=== PATIENT | female | born 1995 | race African-American/Black ===

== ENCOUNTER 2016-07-08 20:54 | Observation (INO) | payer MEDICAID ==
[~2016-07-08] VITALS: Ht 149.9 cm; Wt 48.1 kg
== END 2016-07-08 22:10 | disposition home or self-care (01) | DRG 566 ==
LOC: LDRP 20:54
PROVIDERS: ADMIT Specialist; ATTEND Specialist
DX: O26.893 Other specified pregnancy related conditions, third trimester (principal); R10.2 Pelvic and perineal pain; O62.9 Abnormality of forces of labor, unspecified; Z3A.38 38 weeks gestation of pregnancy
CPT/HCPCS: G0378

== ENCOUNTER 2016-07-11 06:17 | Observation (INO) | payer MEDICAID | END 2016-07-11 07:10 | disposition home or self-care (01) | DRG 566 | LOC: LDRP 06:17 | PROVIDERS: ADMIT Obstetrics & Gynecology; ATTEND Obstetrics & Gynecology | DX: O26.853 Spotting complicating pregnancy, third trimester (principal); Z3A.39 39 weeks gestation of pregnancy | CPT/HCPCS: 59025; 81002; G0378; G0434 ==

== ENCOUNTER 2016-07-12 18:52 | Observation (INO) | payer MEDICAID ==
[2016-07-12] MEDS ORDERED: ACETAMINOPHEN/CODEINE#3 (300/30mg) TAB ONE (20:46)
[2016-07-12] MEDS ORDERED: ACETAMINOPHEN/CODEINE#3 (300/30mg) TAB PO ONE (20:51)
[2016-07-12 21:34] LABS: Urine Bilirubin Negative (Negative); Urine Color Yellow (Yellow); Urine Glucose Normal (Normal); Urine Ketone Negative (Negative); Urine Nitrite Negative (Negative); Urine RBC 19 /hpf (0 - 4); Urine Squamous Epithelial Cell FEW /hpf (<5); Urine Urobilinogen Normal (Negative); Urine WBC Clumps PRESENT /hpf (None Seen); Urine pH 7.5 (5.0-8.0)
[2016-07-12 21:36] LABS: Urine Blood 3+ /uL (Negative)
== END 2016-07-12 22:05 | disposition home or self-care (01) | DRG 566 ==
LOC: LDRP 18:52
PROVIDERS: ADMIT Specialist; ATTEND Specialist
DX: O26.893 Other specified pregnancy related conditions, third trimester (principal); Z3A.39 39 weeks gestation of pregnancy
CPT/HCPCS: 59025; 81001; 81002; G0378

== ENCOUNTER 2016-07-13 02:10 | Inpatient (IN) | payer MEDICAID ==
[~2016-07-13] VITALS: Ht 30.5 cm; Wt 0.5 kg
[2016-07-13] MEDS ORDERED: LACT. RINGERS/OXYTOCIN 20UNITS 1,000 ML IV SCH (03:39)
[2016-07-13] MEDS ORDERED: DERMOPLAST 60ML BOTTLE TOP PRN (03:45)
[2016-07-13] MEDS ORDERED: LIDOCAINE 1% HCL (LOCAL ANESTH.) INJ 20ML MDV IJ ONE (03:45)
[2016-07-13] MEDS ORDERED: PHISODERM TOP SOLN 240ML BTL TOP PRN (03:45)
[2016-07-13] MEDS ORDERED: PROMETHAZINE HCL 25 MG/ML 1ML IV PRN ×2 (03:45→04:45)
[2016-07-13] MEDS ORDERED: NALBUPHINE HCL 10 MG/1ml INJECTION IV PRN (03:45)
[2016-07-13] MEDS ORDERED: WITCH HAZEL-GLYCERIN PAD TOP PRN (03:45)
[2016-07-13 04:20] LABS: Basophils # (auto) 0 uL; Basophils % (auto) 0.2 % (0.0-2.0); Eosinophils # (auto) 0 uL; Eosinophils % (auto) 0.4 % (0.0-7.0); Hematocrit 35.2 % (36.0-46.0); Hemoglobin 11.1 g/dL (12.2-16.2); Lymphocytes # (auto) 2.5 uL; Lymphocytes % (auto) 20.5 % (10.0-50.0); Mean Corpuscular Hemoglobin 29.6 pg (28.0-32.0); Mean Corpuscular Hgb Conc. 31.6 g/dL (32.0-36.0); Mean Corpuscular Volume 93.9 fL (80.0-100.0); Mean Platelet Volume 8.2 fL (7.4-10.4); Monocytes # (auto) 1.5 uL; Monocytes % (auto) 12.2 % (0.0-12.0); Neutrophils # (auto) 8.1 uL; Neutrophils % (auto) 66.7 % (37.0-80.0); Platelet Count (auto) 265 10^3/uL (140-450); White Blood Cell 12.1 10^3/uL (4.4-10.8)
[2016-07-13 04:58] LABS: Albumin 2.6 g/dL (3.4-5.0); BUN/Creatinine Ratio 4.8; Calcium 8.5 mg/dL (8.5-10.1)
[2016-07-13 05:01] LABS: Bilirubin, Total 0.3 mg/dL (0.2-1.0); Total Protein 6.8 g/dL (6.4-8.2)
[2016-07-13 05:02] LABS: Potassium 2.6 mmol/L (3.5-5.1)
[2016-07-13 05:08] LABS: Urine Bilirubin Negative (Negative); Urine Ca Oxalate Crystal FEW (None Seen); Urine Color Yellow (Yellow); Urine Glucose Normal (Normal); Urine Hyaline Cast MOD /lpf (0 - 2); Urine Ketone Negative (Negative); Urine Nitrite Negative (Negative); Urine RBC 137 /hpf (0 - 4); Urine Squamous Epithelial Cell FEW /hpf (<5); Urine Urobilinogen Normal (Negative); Urine pH 7.5 (5.0-8.0)
[2016-07-13 05:09] LABS: INR 0.95 (0.9-1.15); Partial Thromboplastin Time 27.7 sec (22.64-33.71); Prothrombin Time 9.8 sec (9.37-12.3)
[2016-07-13 05:12] LABS: Urine Blood 2+ /uL (Negative)
[2016-07-13] MEDS ORDERED: POTASSIUM CHL 20 Meq TABLET PO ONE (06:15)
[2016-07-13] MEDS ORDERED: POTASSIUM CHL 20MEQ/100ML 100 ML IV ONE (06:15)
[2016-07-13] MEDS: LACTATED RINGER'S 1,000 ML IV SCH ×3 (07:00→19:39)
[2016-07-13] MEDS ORDERED: ePHEDrine SULFATE 50 MG/ML AMP IV ONE ×2 (07:15→13:30)
[2016-07-13] MEDS ORDERED: fentaNYL CITRATE 100 MCG/2 ML VL IV ONE (07:15)
[2016-07-13] MEDS ORDERED: fentaNYL W ROPIVACAINE 150 ML EPI SCH (07:15)
[2016-07-13] MEDS ORDERED: LIDOCAINE HCL 2 %PF INJ 10ML AMP IJ ONE (07:15)
[2016-07-13] MEDS ORDERED: NALOXONE HCL 0.4 MG/ML VIAL IV ONE (13:30)
[2016-07-13] MEDS ORDERED: hydrALAZINE HCL 20 MG/ML VL IV ONE (14:45)
[2016-07-13 15:35] LABS: Basophils # (auto) 0 uL; Basophils % (auto) 0.1 % (0.0-2.0); DEFINITIVE VIEW TRANSMISSION; Eosinophils # (auto) 0 uL; Hematocrit 34.8 % (36.0-46.0); Hemoglobin 11.3 g/dL (12.2-16.2); Lymphocytes # (auto) 1.2 uL; Lymphocytes % (auto) 7.4 % (10.0-50.0); Mean Corpuscular Hemoglobin 29.8 pg (28.0-32.0); Mean Corpuscular Hgb Conc. 32.3 g/dL (32.0-36.0); Mean Corpuscular Volume 92.1 fL (80.0-100.0); Monocytes # (auto) 1.6 uL; Monocytes % (auto) 10.2 % (0.0-12.0); Neutrophils % (auto) 82.3 % (37.0-80.0); Platelet Count (auto) 272 10^3/uL (140-450); Red Cell Distribution Width 14.3 % (11.6-16.0); White Blood Cell 15.8 10^3/uL (4.4-10.8)
[2016-07-13 16:26] LABS: Albumin 2.7 g/dL (3.4-5.0); BUN/Creatinine Ratio 7.3; Bilirubin, Total 0.4 mg/dL (0.2-1.0); Calcium 8.5 mg/dL (8.5-10.1); Potassium 3.5 mmol/L (3.5-5.1); Total Protein 6.8 g/dL (6.4-8.2); Uric Acid 3.9 mg/dL (2.6-6.0)
[2016-07-13] MEDS: DOCUSATE CALCIUM 240 MG CAP PO SCH (18:55)
[2016-07-13] MEDS ORDERED: ACETAMINOPHEN 325 MG TAB PO PRN (19:00)
[2016-07-13] MEDS ORDERED: LABETALOL HCL 200 MG TAB ONE (20:32)
[2016-07-13 21:02] LABS: Basophils # (auto) 0 uL; Basophils % (auto) 0.1 % (0.0-2.0); DEFINITIVE VIEW TRANSMISSION; Eosinophils # (auto) 0 uL; Hematocrit 31.8 % (36.0-46.0); Hemoglobin 10.1 g/dL (12.2-16.2); Lymphocytes # (auto) 0.7 uL; Lymphocytes % (auto) 3.4 % (10.0-50.0); Mean Corpuscular Hgb Conc. 31.9 g/dL (32.0-36.0); Mean Platelet Volume 8.1 fL (7.4-10.4); Neutrophils # (auto) 18.9 uL; Neutrophils % (auto) 87.5 % (37.0-80.0); Platelet Count (auto) 262 10^3/uL (140-450); Red Cell Distribution Width 14.3 % (11.6-16.0); SUSPECT VIEW TRANSMISSION; White Blood Cell 21.6 10^3/uL (4.4-10.8)
[2016-07-13 21:45] LABS: Platelet Estimate Adequate
[2016-07-13 21:46] LABS: Anisocytosis Slight
[2016-07-13] MEDS: ceFAZolin 1GM/50ML D5W 50 ML IV SCH (21:57)
[2016-07-13] MEDS: IBUPROFEN 600 MG TAB PO PRN (21:58)
[2016-07-13] MEDS: LABETALOL HCL 200 MG TAB PO SCH (22:00)
[2016-07-14] VITALS (7 sets, daily range): BP systolic 94–131; BP diastolic 55–80
[2016-07-14] MEDS: ceFAZolin 1GM/50ML D5W 50 ML IV SCH ×2 (05:40→21:56)
[2016-07-14] MEDS: IBUPROFEN 600 MG TAB PO PRN (07:30)
[2016-07-14] MEDS: LABETALOL HCL 200 MG TAB PO SCH ×2 (09:56→21:59)
[2016-07-14] MEDS: DOCUSATE CALCIUM 240 MG CAP PO SCH (09:58)
[2016-07-14] MEDS ORDERED: ceFAZolin 1GM/50ML D5W 50 ML IV SCH (14:00)
[2016-07-15 04:00] VITALS: BP 119/78
[2016-07-15] MEDS: ceFAZolin 1GM/50ML D5W 50 ML IV SCH (06:00)
[2016-07-15 08:13] VITALS: BP 116/77
== END 2016-07-15 10:55 | disposition home or self-care (01) | DRG 560 ==
LOC: OBSVTOIN 02:10 → LDRP 02:10
PROVIDERS: ADMIT Specialist; ATTEND Specialist
PROC: 10E0XZZ Delivery of Products of Conception, External Approach (ICD-10-PCS; principal; 2016-07-13)
PROC: 0W8NXZZ Division of Female Perineum, External Approach (ICD-10-PCS; 2016-07-13)
PROC: 00HU33Z Insertion of Infusion Device into Spinal Canal, Percutaneous Approach (ICD-10-PCS; 2016-07-13)
PROC: 3E0R3CZ (ICD-10-PCS; 2016-07-13)
DX: O13.4 Gestational [pregnancy-induced] hypertension without significant proteinuria, complicating childbirth (principal); O77.0 Labor and delivery complicated by meconium in amniotic fluid; Z37.0 Single live birth; Z3A.39 39 weeks gestation of pregnancy
CPT/HCPCS: 36415; 51702; 59025; 59409; 62282; 80053; 81001; 84550; 85025; 85384; 85610; 85730; 86850; 86900; 86901; 87086; 96365; 96366; 96375; G0434; J0690; J2590; J3010; J3480

== ENCOUNTER 2018-02-12 11:40 | Observation (INO) | payer MEDICAID ==
[~2018-02-12] VITALS: Ht 30.5 cm; Wt 0.5 kg
[~2018-02-12 11:40] MED LIST: PREN-96 PO
[2018-02-12] MEDS ORDERED: BETAMETHASONE ACET (6MG/ML) 5ML VIAL IM ONE (12:30)
[2018-02-13] MEDS ORDERED: FERR-7 PO (13:45)
== END 2018-02-12 13:20 | disposition home or self-care (01) | DRG 566 ==
LOC: LDRP 11:40
PROVIDERS: ADMIT Specialist; ATTEND Specialist
DX: O36.5930 Maternal care for other known or suspected poor fetal growth, third trimester, not applicable or unspecified (principal); Z3A.35 35 weeks gestation of pregnancy
CPT/HCPCS: 59025; 81002; 96372; G0378; J0702

== ENCOUNTER 2018-02-13 13:00 | Observation (INO) | payer MEDICAID ==
[~2018-02-13] VITALS: Ht 149.9 cm; Wt 56.2 kg
[2018-02-13] MEDS ORDERED: BETAMETHASONE ACET (6MG/ML) 5ML VIAL IM ONE (13:10)
[2018-02-13] MEDS ORDERED: FERR-7 PO (13:45)
== END 2018-02-13 13:35 | disposition home or self-care (01) | DRG 566 ==
LOC: LDRP 13:00
PROVIDERS: ADMIT Obstetrics & Gynecology; ATTEND Obstetrics & Gynecology
DX: O36.5930 Maternal care for other known or suspected poor fetal growth, third trimester, not applicable or unspecified (principal); O99.89 Other specified diseases and conditions complicating pregnancy, childbirth and the puerperium; M54.9 Dorsalgia, unspecified; Z3A.36 36 weeks gestation of pregnancy
CPT/HCPCS: 59025; 81002; 96372; G0378

== ENCOUNTER 2018-02-16 15:30 | Observation (INO) | payer MEDICAID ==
[~2018-02-16 15:30] MED LIST changes: +FERR-7 PO
== END 2018-02-16 16:30 | disposition home or self-care (01) | DRG 566 ==
LOC: LDRP 15:30
PROVIDERS: ADMIT Specialist; ATTEND Specialist
DX: O36.5930 Maternal care for other known or suspected poor fetal growth, third trimester, not applicable or unspecified (principal); O26.893 Other specified pregnancy related conditions, third trimester; R10.30 Lower abdominal pain, unspecified; Z3A.36 36 weeks gestation of pregnancy
CPT/HCPCS: 59025; 81002; G0378; 76818

== ENCOUNTER 2018-02-23 14:06 | Observation (INO) | payer MEDICAID | END 2018-02-23 16:31 | disposition home or self-care (01) | DRG 566 | LOC: LDRP 14:06 | PROVIDERS: ADMIT Obstetrics & Gynecology; ATTEND Obstetrics & Gynecology | DX: O36.5930 Maternal care for other known or suspected poor fetal growth, third trimester, not applicable or unspecified (principal); O26.893 Other specified pregnancy related conditions, third trimester; R10.30 Lower abdominal pain, unspecified; Z3A.37 37 weeks gestation of pregnancy | CPT/HCPCS: 59025; 76818; 81002; G0378 ==

== ENCOUNTER 2018-02-28 14:05 | Observation (INO) | payer MEDICAID | END 2018-02-28 15:40 | disposition home or self-care (01) | DRG 566 | LOC: LDRP 14:05 | PROVIDERS: ADMIT Obstetrics & Gynecology; ATTEND Obstetrics & Gynecology | DX: O36.5930 Maternal care for other known or suspected poor fetal growth, third trimester, not applicable or unspecified (principal); O26.893 Other specified pregnancy related conditions, third trimester; R10.30 Lower abdominal pain, unspecified; Z3A.38 38 weeks gestation of pregnancy | CPT/HCPCS: 59025; 76818; 81002; G0378 ==

== ENCOUNTER 2018-03-06 10:00 | Inpatient (IN) | payer MEDICAID ==
[~2018-03-06] VITALS: Ht 30.5 cm; Wt 0.5 kg
[2018-03-06] MEDS ORDERED: PENICILLIN G POT 5MIL/D5 50ML 50 ML IV ONE (10:30)
[2018-03-06] MEDS ORDERED: LIDOCAINE 2% (LOCAL ANESTH.) PF 5ml SDV ID ONE (10:30)
[2018-03-06] MEDS ORDERED: NALBUPHINE HCL 10 MG/1ml INJECTION IV PRN (10:30)
[2018-03-06] MEDS ORDERED: DERMOPLAST 60ML BOTTLE TOP PRN (10:30)
[2018-03-06] MEDS ORDERED: PHISODERM TOP SOLN 240ML BTL TOP PRN (10:30)
[2018-03-06] MEDS ORDERED: WITCH HAZEL-GLYCERIN PAD TOP PRN (10:30)
[2018-03-06] MEDS ORDERED: PROMETHAZINE HCL 25 MG/ML 1ML IV PRN (10:30)
[2018-03-06] MEDS: LACTATED RINGER'S 1,000 ML IV SCH ×2 (10:56→16:51)
[2018-03-06 11:16] LABS: Basophils # (auto) 0 uL; Basophils % (auto) 0.5 % (0.0-2.0); Eosinophils # (auto) 0 uL; Eosinophils % (auto) 0.8 % (0.0-7.0); Hematocrit 37.4 % (36.0-46.0); Lymphocytes # (auto) 1.8 uL; Lymphocytes % (auto) 27.8 % (10.0-50.0); Mean Corpuscular Hemoglobin 33.3 pg (28.0-32.0); Mean Corpuscular Hgb Conc. 34.8 g/dL (32.0-36.0); Mean Corpuscular Volume 95.8 fL (80.0-100.0); Monocytes # (auto) 0.6 uL; Monocytes % (auto) 9.2 % (0.0-12.0); Neutrophils # (auto) 3.9 uL; Neutrophils % (auto) 61.7 % (37.0-80.0); Nucleated Red Blood Cells % 0.1 %; Platelet Count (auto) 179 10^3/uL (140-450); Red Blood Cells 3.91 10^6/uL (4.0-5.20); Red Cell Distribution Width 15.2 % (11.8-14.3); White Blood Cell 6.3 10^3/uL (4.4-10.8)
[2018-03-06 11:20] LABS: Urine Bacteria NONE SEEN /hpf (None Seen); Urine Blood Negative /uL (Negative); Urine Specific Gravity 1.002 (1.001-1.035); Urine WBC 1 /hpf (0 - 5)
[2018-03-06 11:30] LABS: INR 0.92 (0.9-1.15); Partial Thromboplastin Time 26.9 sec (23.78-33.04); Prothrombin Time 9.9 sec (9.27-12.13)
[2018-03-06 11:35] LABS: Albumin 2.7 g/dL (3.4-5.0); BUN/Creatinine Ratio 13.8; Calcium 7.6 mg/dL (8.5-10.1); Potassium 3.5 mmol/L (3.5-5.1)
[2018-03-06 11:37] LABS: Bilirubin, Total 0.2 mg/dL (0.2-1.0); Total Protein 6.6 g/dL (6.4-8.2)
[2018-03-06] MEDS: PENICILLIN G POTASSIUM 2,500,000 UNITS in D5W 5% 50 ML IV SCH ×3 (14:53→23:12)
[2018-03-06 15:17] LABS: Alcohol, Urine < 3.0 mg/dL (0-5); Amphetamine Screen, Urine NEGATIVE (NEGATIVE); Barbiturate Scree,Urine NEGATIVE (NEGATIVE); Benzodiazephine Screen, Urine NEGATIVE (NEGATIVE); Cannabinoid Screen, Urine NEGATIVE (NEGATIVE); Cocaine Screen, Urine NEGATIVE (NEGATIVE); Opiate Scree,Urine NEGATIVE (NEGATIVE); Phencyclidine Screen, Urine NEGATIVE (NEGATIVE)
[2018-03-06] MEDS ORDERED: LIDOCAINE HCL 2 %PF INJ 10ML AMP IJ ONE (20:15)
[2018-03-06] MEDS ORDERED: ePHEDrine SULFATE 50 MG/ML AMP IV ONE ×2 (20:15→21:15)
[2018-03-06] MEDS ORDERED: fentaNYL CITRATE 100 MCG/2 ML VL IV ONE ×2 (20:15→21:15)
[2018-03-06] MEDS ORDERED: fentaNYL W ROPIVACAINE 150 ML EPI SCH ×2 (20:15→21:15)
[2018-03-06] MEDS ORDERED: NALOXONE HCL 0.4 MG/ML VIAL IV ONE ×2 (20:15→21:15)
[2018-03-06] MEDS ORDERED: LACT. RINGERS/OXYTOCIN 20UNITS 1,000 ML IV SCH (22:27)
[2018-03-06] MEDS ORDERED: METHYLERGONOVINE MALEATE 0.2 MG/ML AMP IM ONE (22:29)
[2018-03-06] MEDS ORDERED: LACT. RINGERS/OXYTOCIN 20UNITS 1,000 ML IV ONE (22:29)
[2018-03-06] MEDS ORDERED: METHYLERGONOVINE MALEATE 0.2 MG/ML AMP IM PRN (22:30)
[2018-03-06] MEDS ORDERED: diphenhdrAMINE HCL 50 MG/1 ML VL IV PRN (23:00)
[2018-03-07 03:00] VITALS: BP 99/42
[2018-03-07] MEDS: IBUPROFEN 600 MG TAB PO PRN ×4 (03:25→17:14)
[2018-03-07] MEDS ORDERED: INFLUENZA QUAD 2018-2019 0.5 ML SYRG IM ONE (04:00)
[2018-03-07] MEDS ORDERED: TETANUS-DIPTH-ACEL PERTUSSIS 0.5ML SYRG IM ONE (04:00)
[2018-03-07 05:10] LABS: RPR Non Reactive (Non Reactive)
[2018-03-07 06:45] VITALS: BP 96/55
[2018-03-07] MEDS: DOCUSATE CALCIUM 240 MG CAP PO SCH (09:33)
[2018-03-07 11:05] VITALS: BP 84/55
[2018-03-07 15:05] VITALS: BP 94/59
[2018-03-07 22:55] VITALS: BP 111/68
[2018-03-07] MEDS ORDERED: ACETAMINOPHEN 325 MG TAB PO PRN (23:00)
[2018-03-08 03:15] VITALS: BP 98/61
[2018-03-08 06:40] VITALS: BP 113/78
[2018-03-08] MEDS: DOCUSATE CALCIUM 240 MG CAP PO SCH (11:06)
[2018-03-08 11:25] VITALS: BP 117/82
== END 2018-03-08 11:45 | disposition home or self-care (01) | DRG 560 ==
LOC: LDRP 10:00
PROVIDERS: ADMIT Specialist; ATTEND Specialist
PROC: 10E0XZZ Delivery of Products of Conception, External Approach (ICD-10-PCS; principal; 2018-03-06)
PROC: 3E0R3BZ Introduction of Anesthetic Agent into Spinal Canal, Percutaneous Approach (ICD-10-PCS; 2018-03-06)
PROC: 00HU33Z Insertion of Infusion Device into Spinal Canal, Percutaneous Approach (ICD-10-PCS; 2018-03-06)
PROC: 10907ZC Drainage of Amniotic Fluid, Therapeutic from Products of Conception, Via Natural or Artificial Opening (ICD-10-PCS; 2018-03-06)
DX: O99.824 Streptococcus B carrier state complicating childbirth (principal); O36.5930 Maternal care for other known or suspected poor fetal growth, third trimester, not applicable or unspecified; Z37.0 Single live birth; Z3A.39 39 weeks gestation of pregnancy
CPT/HCPCS: 36415; 51702; 59025; 59409; 62282; 80053; 80307; 81001; 85025; 85610; 85730; 86592; 86850; 86900; 86901; 94762; 96365; 96366; A6257; J2001; J2540; J2590; J3010; J7060

== ENCOUNTER 2020-10-23 02:10 | Inpatient (IN) | payer MEDICAID ==
[~2020-10-23] VITALS: Ht 149.9 cm; Wt 67.6 kg
[2020-10-23] MEDS ORDERED: BUTORPHANOL TARTRATE 2 MG/1 ML VIAL IV PRN ×2 (03:00)
[2020-10-23] MEDS ORDERED: LACT. RINGERS/OXYTOCIN 20UNITS 500 ML IV ONE (03:00)
[2020-10-23] MEDS ORDERED: DERMOPLAST 60ML BOTTLE TOP PRN (03:00)
[2020-10-23] MEDS ORDERED: PHISODERM TOP SOLN 240ML BTL TOP PRN (03:00)
[2020-10-23] MEDS ORDERED: WITCH HAZEL-GLYCERIN PAD TOP PRN (03:00)
[2020-10-23] MEDS ORDERED: OXYTOCIN 10UNIT/ML 1ML VIAL IM ONE (03:00)
[2020-10-23] MEDS ORDERED: PROMETHAZINE HCL 25 MG/ML 1ML IV PRN (03:00)
[2020-10-23] MEDS ORDERED: TERBUTALINE SULFATE 1 MG/ML 1ML VIAL SC ONE (03:00)
[2020-10-23] MEDS ORDERED: LIDOCAINE 2%HCL (LOCAL ANESTH.) INJ 20ML MDV IJ PRN (03:00)
[2020-10-23] MEDS ORDERED: LACTATED RINGER'S 1,000 ML IV SCH (03:00)
[2020-10-23] MEDS ORDERED: LACT. RINGERS/OXYTOCIN 20UNITS 1,000 ML IV SCH (03:00)
[2020-10-23 03:31] LABS: Eosinophils # (auto) 0.1 10 ^3/uL (0-0.8); Monocytes # (auto) 1.6 10 ^3/uL (0-1.3); Neutrophils # (auto) 7.8 10 ^3/uL (1.6-8.6); Nucleated Red Blood Cells % 0.3 %
[2020-10-23 03:32] LABS: Basophils # (auto) 0 10 ^3/uL (0-0.2); Basophils % (auto) 0.3 % (0.0-2.0); Eosinophils % (auto) 0.4 % (0.0-7.0); Hematocrit 27.4 % (36.0-46.0); Lymphocytes # (auto) 3.8 10 ^3/uL (0.4-5.4); Lymphocytes % (auto) 28.5 % (10.0-50.0); Mean Corpuscular Hemoglobin 26.9 pg (28.0-32.0); Mean Corpuscular Hgb Conc. 32.9 g/dL (32.0-36.0); Mean Corpuscular Volume 81.8 fL (80.0-100.0); Monocytes % (auto) 12.1 % (0.0-12.0); Neutrophils % (auto) 58.7 % (37.0-80.0); Platelet Count (auto) 368 10^3/uL (140-450); Red Blood Cells 3.35 10^6/uL (4.0-5.20); Red Cell Distribution Width 15.6 % (11.8-14.3); White Blood Cell 13.3 10^3/uL (4.4-10.8)
[2020-10-23 03:37] LABS: INR 0.97 (0.9-1.15); Partial Thromboplastin Time 23.9 sec (23.0-31.2)
[2020-10-23 03:41] LABS: Albumin 2.8 g/dL (3.4-5.0); Calcium 8.4 mg/dL (8.5-10.1)
[2020-10-23 03:44] LABS: BUN/Creatinine Ratio 10.2; Bilirubin, Total 0.4 mg/dL (0.2-1.0); Total Protein 7.3 g/dL (6.4-8.2)
[2020-10-23] MEDS ORDERED: METHYLERGONOVINE MALEATE 0.2 MG/ML AMP IM ONE (03:45)
[2020-10-23 03:54] LABS: Potassium 2.9 mmol/L (3.5-5.1)
[2020-10-23] MEDS ORDERED: ACETAMINOPHEN 325 MG TAB PO PRN (04:45)
[2020-10-23] MEDS ORDERED: POTASSIUM CHL 20 Meq TABLET PO ONE (05:30)
[2020-10-23 05:34] LABS: Urine Specific Gravity 1.012 (1.001-1.035)
[2020-10-23 05:35] LABS: Urine Bacteria NONE SEEN /hpf (None Seen); Urine Blood Negative /uL (Negative); Urine Hyaline Cast FEW /lpf (0 - 2); Urine WBC 7 /hpf (0 - 5)
[2020-10-23 05:37] LABS: Alcohol, Urine < 3.0 mg/dL (0-10); Amphetamine Screen, Urine NEGATIVE (NEGATIVE); Barbiturate Scree,Urine NEGATIVE (NEGATIVE); Benzodiazephine Screen, Urine NEGATIVE (NEGATIVE); Cannabinoid Screen, Urine NEGATIVE (NEGATIVE); Cocaine Screen, Urine NEGATIVE (NEGATIVE); Opiate Scree,Urine NEGATIVE (NEGATIVE); Phencyclidine Screen, Urine NEGATIVE (NEGATIVE)
[2020-10-23] MEDS: IBUPROFEN 600 MG TAB PO PRN ×2 (06:34→22:59)
[2020-10-23 11:00] VITALS: BP 122/59
[2020-10-23 14:37] VITALS: BP 126/88
[2020-10-23 18:52] VITALS: BP 117/78
[2020-10-23 23:00] VITALS: BP 124/79
[2020-10-24 03:30] VITALS: BP 117/76
[2020-10-24 06:06] LABS: RPR Non Reactive (Non Reactive)
[2020-10-24 07:00] VITALS: BP 134/61
[2020-10-24] MEDS ORDERED: POTASSIUM CHL 20 Meq TABLET PO ONE (08:30)
[2020-10-24 11:01] VITALS: BP 123/87
== END 2020-10-24 14:50 | disposition home or self-care (01) | DRG 560 ==
LOC: LDRP 02:10 → OBSVTOIN 02:48 → LDRP 02:49
PROVIDERS: ADMIT Obstetrics & Gynecology; ATTEND Obstetrics & Gynecology
PROC: 10E0XZZ Delivery of Products of Conception, External Approach (ICD-10-PCS; principal; 2020-10-23)
PROC: 0HQ9XZZ Repair Perineum Skin, External Approach (ICD-10-PCS; 2020-10-23)
DX: O70.0 First degree perineal laceration during delivery (principal); Z20.822 Contact with and (suspected) exposure to COVID-19; Z37.0 Single live birth; Z3A.39 39 weeks gestation of pregnancy
CPT/HCPCS: 36415; 59025; 59409; 80053; 80307; 81001; 81002; 84132; 85025; 85610; 85730; 86592; 86850; 86900; 86901; 87426; 94760; 96360; 96361; 96365; 96366; 96372; G0378; J2590

== ENCOUNTER 2023-10-16 14:32 | Observation (INO) | payer MEDICAID ==
[~2023-10-16] VITALS: Ht 149.9 cm; Wt 63.5 kg
[2023-10-16] MEDS ORDERED: LACTATED RINGER'S 1,000 ML IV SCH (15:15)
[2023-10-16 15:30] VITALS: TEMP 97.9
[2023-10-16] MEDS: ACETAMINOPHEN 500 MG TAB PO ONE (15:30)
[2023-10-16] MEDS: ceFAZolin 2 GM/D5W50ml 50 ML IV ONE (15:31)
[2023-10-16] MEDS: LACTATED RINGER'S 1,000 ML IV ONE (15:31)
== END 2023-10-16 16:42 | disposition home or self-care (01) ==
LOC: UNDOADMOB 14:32 → LDRP 14:32
PROVIDERS: ADMIT Obstetrics & Gynecology; ATTEND Obstetrics & Gynecology
DX: O62.9 Abnormality of forces of labor, unspecified (principal); O26.893 Other specified pregnancy related conditions, third trimester; R50.9 Fever, unspecified; R05.9 Cough, unspecified; O99.513 Diseases of the respiratory system complicating pregnancy, third trimester; J02.9 Acute pharyngitis, unspecified; Z3A.38 38 weeks gestation of pregnancy
CPT/HCPCS: 59025; 81002; 94760; 96365; G0378; J0690; 96360; 96361

== ENCOUNTER 2023-10-20 11:20 | Inpatient (IN) | payer MEDICAID ==
[~2023-10-20] VITALS: Ht 33 cm; Wt 0.5 kg
[2023-10-20] MEDS ORDERED: BUTORPHANOL TARTRATE 2 MG/1 ML VIAL IV PRN ×2 (11:45)
[2023-10-20] MEDS ORDERED: LIDOCAINE 2%HCL (LOCAL ANESTH.) INJ 20ML MDV IJ PRN (11:45)
[2023-10-20 12:07] LABS: Urine Bacteria None Seen /hpf (None Seen)
[2023-10-20 12:12] LABS: Basophils # (auto) 0 10 ^3/uL (0-0.2); Basophils % (auto) 0.3 % (0.0-2.0); Eosinophils # (auto) 0 10 ^3/uL (0-0.8); Eosinophils % (auto) 0.2 % (0.0-7.0); Hematocrit 34.3 % (36.0-46.0); Hemoglobin 11.4 g/dL (12.2-16.2); Lymphocytes % (auto) 30.7 % (10.0-50.0); Mean Corpuscular Hemoglobin 30.2 pg (28.0-32.0); Mean Corpuscular Hgb Conc. 33.3 g/dL (32.0-36.0); Mean Corpuscular Volume 90.6 fL (80.0-100.0); Monocytes # (auto) 0.7 10 ^3/uL (0-1.3); Monocytes % (auto) 10.2 % (0.0-12.0); Neutrophils # (auto) 3.8 10 ^3/uL (1.6-8.6); Neutrophils % (auto) 58.6 % (37.0-80.0); Nucleated Red Blood Cells % 0.1 %; Red Blood Cells 3.79 10^6/uL (4.0-5.20); Red Cell Distribution Width 14.8 % (11.8-14.3); White Blood Cell 6.4 10^3/uL (4.4-10.8)
[2023-10-20 12:18] LABS: Urine Blood 1+ /uL (Negative); Urine Clarity Clear (Clear); Urine Color Light-Yellow (Yellow); Urine Protein, UAD Negative (Negative); Urine Specific Gravity 1.011 (1.001-1.035); Urine Urobilinogen Normal (Negative); Urine WBC 5 /hpf (0 - 5)
[2023-10-20 12:27] LABS: INR 1.01 (0.9-1.15); Partial Thromboplastin Time 29.6 SEC (24.5-34.5); Prothrombin Time 10.7 sec (9.3-11.8)
[2023-10-20 12:31] LABS: Alanine Aminotransferase 10 U/L (7-40); Albumin 3.5 g/dL (3.2-4.8); Alkaline Phosphatase 89 U/L (46-116); Anion Gap 8 (5-15); Aspartate Aminotransferase 15 U/L (13-40); Carbon Dioxide 23 mmol/L (20-30); Chloride 109 mmol/L (98-107); Glucose 104 mg/dL (74-106); Sodium 140 mmol/L (136-145)
[2023-10-20 12:31] LABS: Amphetamine Screen, Urine Neg (NEGATIVE); Barbiturate Scree,Urine Neg (NEGATIVE); Benzodiazephine Screen, Urine Neg (NEGATIVE); Cannabinoid Screen, Urine Neg (NEGATIVE); Cocaine Screen, Urine Neg (NEGATIVE); Opiate Scree,Urine Neg (NEGATIVE); Phencyclidine Screen, Urine Neg (NEGATIVE)
[2023-10-20 12:32] LABS: Bilirubin, Total 0.4 mg/dL (0.2-1.0); Total Protein 6.1 g/dL (5.7-8.2)
[2023-10-20 12:46] LABS: BUN/Creatinine Ratio 8.2 (10.0-20.0); Blood Urea Nitrogen < 5 mg/dL (9-23)
[2023-10-20] MEDS: LACTATED RINGER'S 1,000 ML IV ONE (13:00)
[2023-10-20] MEDS ORDERED: ePHEDrine SULFATE 50 MG/ML AMP IV ONE (13:00)
[2023-10-20] MEDS ORDERED: ROPIVACAINE HCL 200 ML ONE (13:18)
[2023-10-20] MEDS: DERMOPLAST 60ML BOTTLE TOP PRN (13:28)
[2023-10-20] MEDS: WITCH HAZEL-GLYCERIN PAD TOP PRN (13:29)
[2023-10-20] MEDS: PHISODERM TOP SOLN 240ML BTL TOP PRN (13:30)
[2023-10-20] MEDS: LACTATED RINGER'S 1,000 ML IV SCH (14:16)
[2023-10-20] MEDS: POTASSIUM CHL 20 Meq TABLET PO SCH (16:13)
[2023-10-20] MEDS: LACT. RINGERS/OXYTOCIN 20UNITS 500 ML IV ONE ×2 (17:22→17:25)
[2023-10-20] MEDS ORDERED: ONDANSETRON ODT 4 MG TAB PO PRN (17:30)
[2023-10-20 18:57] VITALS: BP 138/83; PULSE 80; RESP 16; TEMP 98.2; O2SAT 95
[2023-10-20] MEDS: IBUPROFEN 600 MG TAB PO PRN (19:08)
[2023-10-20] MEDS: ACETAMINOPHEN 325 MG TAB PO PRN (22:05)
[2023-10-20] MEDS: DOCUSATE SOD 100 MG CAP PO SCH (22:05)
[2023-10-20 23:00] VITALS: BP 115/71; PULSE 77; RESP 14; TEMP 98.2; O2SAT 96
[2023-10-21 03:00] VITALS: RESP 16
[2023-10-21] MEDS: POTASSIUM CHL 20 Meq TABLET PO SCH (05:35)
[2023-10-21 06:03] VITALS: BP 118/67; PULSE 75; RESP 16; TEMP 98; O2SAT 97
[2023-10-21 07:00] VITALS: BP 132/80; PULSE 75; RESP 16; RESP 18; TEMP 98.7; O2SAT 97
[2023-10-21 08:05] LABS: Anion Gap 6 (5-15); Carbon Dioxide 24 mmol/L (20-30); Chloride 110 mmol/L (98-107); Potassium 3.7 mmol/L (3.5-5.1); Sodium 140 mmol/L (136-145)
[2023-10-21 08:06] LABS: Calcium 8.8 mg/dL (8.5-10.1)
[2023-10-21 08:11] LABS: BUN/Creatinine Ratio 9.4 (10.0-20.0); Blood Urea Nitrogen < 5 mg/dL (9-23); Glucose 72 mg/dL (74-106)
[2023-10-21 10:07] LABS: RPR Non Reactive (Non Reactive)
[2023-10-21 11:00] VITALS: BP 127/80; PULSE 77; RESP 18; TEMP 97.7; O2SAT 99
[2023-10-21 15:00] VITALS: BP 116/66; PULSE 67; RESP 18; TEMP 98.2; O2SAT 98
[2023-10-21] MEDS ORDERED: IBU600T PO (16:09)
[2023-10-21] MEDS ORDERED: DOCU-265 PO (16:09)
[2023-10-21] MEDS ORDERED: PREN-96 PO (16:17)
== END 2023-10-21 18:46 | disposition home or self-care (01) | DRG 560 ==
LOC: LDRP 11:20 → UNDOADMOB 11:20 → INTOOBSV 11:45 → OBSVTOIN 11:45 → LDRP 11:48 → OBSVTOIN 11:48
PROVIDERS: ADMIT Obstetrics & Gynecology; ATTEND Obstetrics & Gynecology
PROC: 10E0XZZ Delivery of Products of Conception, External Approach (ICD-10-PCS; principal; 2023-10-20)
PROC: 0HQ9XZZ Repair Perineum Skin, External Approach (ICD-10-PCS; 2023-10-20)
PROC: 3E0R3BZ Introduction of Anesthetic Agent into Spinal Canal, Percutaneous Approach (ICD-10-PCS; 2023-10-20)
PROC: 00HU33Z Insertion of Infusion Device into Spinal Canal, Percutaneous Approach (ICD-10-PCS; 2023-10-20)
DX: O77.0 Labor and delivery complicated by meconium in amniotic fluid (principal); Z37.0 Single live birth; O42.92 Full-term premature rupture of membranes, unspecified as to length of time between rupture and onset of labor; O70.0 First degree perineal laceration during delivery; Z3A.38 38 weeks gestation of pregnancy
CPT/HCPCS: 36415; 59025; 59409; 62282; 80048; 80053; 80307; 81001; 81002; 85025; 85610; 85730; 86592; 86850; 86900; 86901; 94760; 96360; 96361; 96365; 96366; G0378; J2590